=== PATIENT | female | born 1955 | race Caucasian/White ===

== ENCOUNTER 2017-01-22 07:24 | Day surgery (SDC) | payer MEDICARE ==
[2017-01-21 12:06] VITALS: BMI 25.0
--- NOTE | 2017-01-22 07:24 | HP ---
CHIEF COMPLAINT: Multiple sclerosis with depleted pain pump. HISTORY: The patient is a 61-year-old female who has multiple sclerosis and chronic pain. She has had a pain pump for about 10 years. It was replaced in 2012. The battery is depleted. She is here for replacement. PAST MEDICAL HISTORY: Significant for multiple sclerosis. PAST SURGICAL HISTORY: Just the pain pump. MEDICATIONS: Aspirin, multivitamins, citalopram, Copaxone, Doculase, Folbic, Baclofen, Provigil, si mvastatin, VESIcare. ALLERGIES: She has allergies to SULFA. FAMILY HISTORY: Both parents are . SOCIAL HISTORY: She is nonsmoker, no alcohol, no drug use. PHYSICAL EXAMINATION: VITAL SIGNS: She is afebrile, pulse 66, blood pressure 99/66. Body mass index 20.98. She is debil itated, very thin, but awake. HEENT: Unremarkable. LUNGS: Clear. HEART: Regular rate and rhythm. ABDOMEN: Soft. There is a pain pump present. EXTREMITIES: Unremarkable. ASSESSMENT: Depleted pain pump. PLAN: Replacement of pain pump. CONSENT: I have discussed the planned procedure as well as risk of bleeding, infection, injury to l lionel. She understands and gives informed consent.
[2017-01-22 08:09] LABS: #Eosinphils 0.3 thou/uL (0.0-0.7); #Lymphocytes 1.5 thou/uL (1.20-3.40); #Monocytes 0.7 thou/uL (0.11-0.59); %Basophils 0.4 % (0.0-1.0); %Eosinophils 5.7 % (0.0-10.0); %Lymphocytes 26.8 % (21.0-51.0); %Monocytes 12.6 % (0.0-10.0); Hematocrit 31.1 % (36.0-47.0); Mean Platelet Volume 7.6 fL (7.4-10.4); Red Blood Cell (RBC) Count 3.27 mill/uL (4.20-5.40); White Blood Cell (WBC) Count 5.6 thou/uL (4.8-10.8)
[2017-01-22] MEDS ORDERED: Bupivacaine/Epinephrine 0.25% 30 ML VIAL ONE (08:24)
[2017-01-22] MEDS ORDERED: CEFAZOLIN/Water 2 GM/20 ML SYRINGE ONE (08:35)
[2017-01-22 08:46] LABS: ALT (SGPT) 14 U/L (8-55); AST (SGOT) 21 U/L (5-34); Alkaline Phosphatase 217 U/L (40-150); Anion Gap 10 mmol/L (10-20); BUN (Urea Nitrogen) 13 mg/dL (9.8-20.1); Bilirubin, Total 0.2 mg/dL (0.2-1.2); Calc. Creatinine Clearance 159 mL/min (70-130); Calcium 9.7 mg/dL (7.8-10.44); Carbon Dioxide 26 mmol/L (23-31); Chloride 104 mmol/L (98-107); Estimated GFR-MDRD Greater than 90; Globulin 3.4 g/dL (2.4-3.5); Protein, Total 6.9 g/dL (6.0-8.3)
[2017-01-22] MEDS ORDERED: Fentanyl 100 MCG/2 ML VIAL ONE (08:53)
[2017-01-22] MEDS ORDERED: Ondansetron HCl/PF 4 MG/2 ML Vial ONE (09:26)
[2017-01-22] MEDS ORDERED: Lidocaine 1% PF 5 ML VIAL ONE (09:26)
[2017-01-22] MEDS ORDERED: PHENYLEPHRINE-NS 100 MCG/ML 10 ML SYRINGE ONE (09:26)
[2017-01-22] MEDS ORDERED: Propofol 200 MG/20 ML VIAL ONE (09:26)
--- NOTE | 2017-01-22 11:15 | OP ---
DATE OF PROCEDURE: 01/22/2017 PREOPERATIVE DIAGNOSIS: Depleted baclofen pain pump. SURGEON: Edward Ibarra M.D. PROCEDURE PERFORMED: Removal and replacement of implantable programmable intrathecal pain pump. INDICATIONS: A 61-year-old female with multiple sclerosis who has had an implanted pain pump for man y years. The battery has been depleted. She needs replacement. FINDINGS: There was approximately 30 mL of baclofen within the old pump which was used for the new p ump. PROCEDURE: After informed consent was obtained, the patient was taken to the operating room and give n general mask anesthesia, placed in the supine position. Her abdomen was prepped and draped in the usual fashion. Local anesthesia infiltrated subcutaneously and deep. A transverse incision was perf ormed through the old scar. Subcu divided sharply down to the capsule and the capsule was incised. The previous sutures were removed. The old pain pump was removed. The tubing cap was removed from t he old pump and then 0.5 mL of baclofen was removed from the tubing to secure patency. The new pump was then primed by removing the transfer saline from the unit. Once it was completely emptied the ol d pump was accessed and the baclofen removed. Approximately 30 mL removed and this was placed in the new pump. The new pump was then connected to the securing phalange with a definite click and then f urther secured with 0 silk tie. Hemostasis was secured. The new pump placed within its capsule with the tubing posterior. It was secured with interrupted 0 Prolene suture. Then the subq was reapprox imated with interrupted 2-0 Vicryl and the skin closed with a running subcuticular 4-0 Rapide. Rennert otoole applied. The patient tolerated the procedure well and transferred to recovery in good condition . Sponge and needle count verified correct x2.
--- NOTE | 2017-01-23 07:55 | EKG ---
Test Reason : PREOP Blood Pressure : / mmHG Vent. Rate : 078 BPM Atrial Rate : 078 BPM P-R Int : 138 ms QRS Dur : 068 ms QT Int : 374 ms P-R-T Axes : 078 026 049 degrees QTc Int : 426 ms Normal sinus rhythm Normal ECG No previous ECGs available Confirmed by DR. Erica SANCHES MD ([id number]) on 01/23/2017 7:54:55 AM Referred By: NUBIA Confirmed By:DR. Erica SANCHES MD
== END 2017-01-22 12:28 | disposition home or self-care (01) ==
LOC: SDC 07:24
PROVIDERS: ATTEND Surgery
PROC: 0JPT0VZ Removal of Infusion Pump from Trunk Subcutaneous Tissue and Fascia, Open Approach (ICD-10-PCS; principal; 2017-01-22)
PROC: 0JH70VZ Insertion of Infusion Pump into Back Subcutaneous Tissue and Fascia, Open Approach (ICD-10-PCS; 2017-01-22)
DX: Z45.1 Encounter for adjustment and management of infusion pump (principal); G35 Multiple sclerosis; G89.29 Other chronic pain; E78.5 Hyperlipidemia, unspecified; F32.9 Major depressive disorder, single episode, unspecified; R32 Unspecified urinary incontinence; Z74.01 Bed confinement status; Z79.82 Long term (current) use of aspirin; Z79.899 Other long term (current) drug therapy; Z88.2 Allergy status to sulfonamides; Z96.0 Presence of urogenital implants
CPT/HCPCS: 62362; 80053; 85025; 93005; C1772; 36415; 93010; J2001; J2405; J2704; J3010